=== PATIENT | female | born 1985 | race Caucasian/White ===

== ENCOUNTER 2018-01-01 14:31 | Emergency (ER) | payer MEDICAID ==
[~2018-01-01] VITALS: Ht 160 cm; Wt 85.0 kg
[~2018-01-01 14:31] MED LIST: ALBU18HF; CEFD300C37 PO; LORA-445 PO; MONT10TA6 PO; PRED5TAB PO
[2018-01-01 14:41] VITALS: BP 138/88
[2018-01-01] MEDS ORDERED: ONDANSETRON ODT 4 MG ONE (15:19)
[2018-01-01] MEDS ORDERED: HYDROcodone/APAP 5/325 TABLET ONE (15:19)
[2018-01-01] MEDS ORDERED: HYDROcodone/APAP 5/325 TABLET PO PRN (15:30)
[2018-01-01] MEDS ORDERED: ONDANSETRON ODT 4 MG PO ONE (15:30)
== END 2018-01-01 16:09 | disposition home or self-care (01) ==
LOC: ED 15:50
DX: M25.511 Pain in right shoulder (principal); J45.909 Unspecified asthma, uncomplicated; F17.210 Nicotine dependence, cigarettes, uncomplicated; R51 Headache; R42 Dizziness and giddiness; Z98.51 Tubal ligation status
CPT/HCPCS: 73030; 99284; Q0162

== ENCOUNTER → 2018-02-24 | Outpatient (CLI) | payer MEDICAID ==
[~2018-02-24] MED LIST changes: +BUPIVACAINE 0.25% ONE; +EPINEPHRINE 1 MG/ML, 1ML ONE; +FLUT200B INH
== END | disposition home or self-care (01) ==
LOC: STAR 11:06
PROVIDERS: ATTEND Orthopaedic Surgery
DX: Z02.9 Encounter for administrative examinations, unspecified (principal)

== ENCOUNTER 2018-03-01 06:58 | Day surgery (SDC) | payer MEDICAID ==
[~2018-03-01] VITALS: Ht 160 cm; Wt 86.6 kg
[~2018-03-01 06:58] MED LIST changes: -BUPIVACAINE 0.25% ONE; -EPINEPHRINE 1 MG/ML, 1ML ONE
[2018-03-01] MEDS ORDERED: LACTATED RINGERS 1,000 ML IV SCH (07:44)
[2018-03-01] MEDS ORDERED: ACETAMINOPHEN 500 MG TABLET PO ONE (08:00)
[2018-03-01] MEDS ORDERED: GABAPENTIN 300 MG CAPSULE PO ONE (08:00)
[2018-03-01 08:05] VITALS: BP 108/72
[2018-03-01] MEDS ORDERED: MIDAZOLAM 1 MG/ML, 2ML ONE (08:15)
[2018-03-01] MEDS ORDERED: FENTANYL PF 250 MCG/5ML ONE (08:15)
[2018-03-01 08:17] LABS: HCG UR SG 1.026 (1.003-1.030)
[2018-03-01] MEDS ORDERED: NEOSTIGMINE 1 MG/ML, 10ML ONE (08:17)
[2018-03-01] MEDS ORDERED: ROCURONIUM 10MG/ML,5ML ONE (08:17)
[2018-03-01] MEDS ORDERED: DEXAMETHASONE 4 MG/ML, 1ML ONE (08:17)
[2018-03-01] MEDS ORDERED: PROPOFOL 10 MG/ML, 20ML ONE (08:17)
[2018-03-01] MEDS ORDERED: GLYCOPYRROLATE 0.2MG/1ML, 5ML ONE (08:17)
[2018-03-01] MEDS ORDERED: ONDANSETRON 2MG/ML, 2ML ONE (08:17)
[2018-03-01] MEDS ORDERED: CEFAZOLIN 1,000 MG ONE (08:17)
[2018-03-01] MEDS ORDERED: LABETALOL 5MG/ML, 20ML IV PRN (10:00)
[2018-03-01] MEDS ORDERED: PROMETHAZINE 25 MG/ML, 1ML IM PRN ×2 (10:00)
[2018-03-01] MEDS ORDERED: ONDANSETRON ODT 8 MG PO PRN (10:00)
[2018-03-01] MEDS ORDERED: MEPERIDINE/PF 25MG/0.5ML IVPush PRN (10:00)
[2018-03-01] MEDS ORDERED: PROMETHAZINE 25 MG/ML, 1ML IV PRN (10:00)
[2018-03-01] MEDS ORDERED: PROMETHAZINE 12.5 MG SUPP PR PRN (10:00)
[2018-03-01] MEDS ORDERED: ONDANSETRON 2MG/ML, 2ML IV PRN (10:00)
[2018-03-01] MEDS ORDERED: hydrALAzine 20 MG/ML, 1ML IV PRN (10:00)
[2018-03-01] MEDS ORDERED: ALBUTEROL SULFATE 2.5 MG/3 ML NPPB PRN (10:00)
[2018-03-01] MEDS ORDERED: OXYcodone 5 MG/5 ML ORAL.SOL UDC PO PRN (10:00)
[2018-03-01] MEDS ORDERED: FENTANYL PF 100 MCG/2ML IV PRN (10:00)
[2018-03-01] MEDS ORDERED: HYDROmorphone 2 MG/ML, 1ML IVPush PRN (10:00)
[2018-03-01] MEDS ORDERED: PROMETHAZINE 25 MG SUPP PR PRN (10:00)
[2018-03-01] MEDS ORDERED: HALOPERIDOL 5 MG/ML IV PRN (10:00)
[2018-03-01] MEDS ORDERED: KETOROLAC 30 MG/1 ML ONE (11:41)
[2018-03-01] MEDS ORDERED: MORPHINE SULFATE 4 MG/ML, 1ML ONE (12:06)
[2018-03-01] MEDS ORDERED: OXYcodone 5 MG/5 ML ORAL.SOL UDC ONE (12:06)
[2018-03-01] MEDS ORDERED: ACETAMINOPHEN 650 MG/20.3 ML UDC ONE (12:07)
[2018-03-01] MEDS: MORPHINE SULFATE 4 MG/ML, 1ML IVPush PRN ×2 (12:10→12:20)
== END 2018-03-01 15:20 | disposition home or self-care (01) ==
LOC: OUT 06:58
PROVIDERS: ATTEND Orthopaedic Surgery
DX: M25.311 Other instability, right shoulder (principal); M24.111 Other articular cartilage disorders, right shoulder; J45.909 Unspecified asthma, uncomplicated; Z79.899 Other long term (current) drug therapy; Z98.890 Other specified postprocedural states; Z98.51 Tubal ligation status
CPT/HCPCS: 29806; 64415; 81025; C1713; J0171; J0690; J1100; J1885; J2250; J2405; J2704; J2710; J3010; J3490; J7120